=== PATIENT | male | born 1955 | race Caucasian/White ===

== ENCOUNTER 2017-10-08 11:20 | Emergency (ER) | payer OTHER, BC ==
--- NOTE | 2017-10-08 11:54 | EDM.PDOC ---
ED HPI GENERAL MEDICAL PROBLEM - General Chief Complaint: Head Injury Stated Complaint: HEAD INJURY Time Seen by Provider: 10/08/17 11:30 Source of Information: Reports: Patient, RN Notes Reviewed - History of Present Illness INITIAL COMMENTS - FREE TEXT/NARRATIVE: 61 year old male with blunt injury to R forehead, was drilling a hole into a wall, the drill bit caught, swung the drill against his forehead with resultant small lac. Mild localized discomfort. No generalized Bello at this time. No nausea, vomiting, dizziness or other acute sx. Last tet. many yrs ago. Right Face Pain Score (Numeric/FACES): 2 - Related Data Allergies Allergy/AdvReac Type Severity Reaction Status Date / Time No Known Allergies Allergy Verified 10/08/17 11:26 Home Meds: Home Meds Losartan [Cozaar] 50 mg PO DAILY 10/08/17 [History] Past Medical History Cardiovascular History: Reports: Hypertension Social & Family History - Tobacco Use Smoking Status *Q: Never Smoker - Recreational Drug Use Recreational Drug Use: No ED ROS GENERAL - Review of Systems Review Of Systems: See Below Constitutional: Reports: No Symptoms HEENT: Reports: Other (blunt lac injury R forehead) Respiratory: Reports: No Symptoms Cardiovascular: Denies: Chest Pain GI/Abdominal: Denies: Nausea, Vomiting Musculoskeletal: Denies: Neck Pain Neurological: Reports: Headache (mild localized discomfort area of injury) ED EXAM, HEAD INJURY - Physical Exam Exam: See Below General Appearance: Alert, No Apparent Distress Head: Facial Swelling (mild localized swelling area of injury), Other (small starburst lac R forehead, no active bleeding, about 3/4 cm, edges barely separable). No: Facial Tenderness, Raccoon Eyes Eyes: Bilateral Eye: PERRL, Other (no visible injury) Ears: Normal External Exam Nose: Normal Inspection Neck: Non-Tender, Full Range of Motion Respiratory: No Respiratory Distress Extremities: Normal Inspection, Normal Range of Motion Neurologic: No Motor/Sensory Deficits, Alert, Oriented x 3, Other (finger to nose normal) Skin: Normal Color, Warm/Dry Course - Vital Signs Last Recorded V/S: Last Vital Signs Temp 98.3 F 10/08/17 11:26 Pulse 97 10/08/17 11:26 Resp 16 10/08/17 11:26 BP 141/96 H 10/08/17 11:26 Pulse Ox 97 10/08/17 11:26 Departure - Departure Time of Disposition: 11:52 Disposition: Home, Self-Care 01 Condition: Fair Clinical Impression: Forehead contusion Qualifiers: Encounter type: initial encounter Qualified Code(s): S00.83XA - Contusion of other part of head, initial encounter Forehead laceration Qualifiers: Encounter type: initial encounter Qualified Code(s): S01.81XA - Laceration without foreign body of other part of head, initial encounter - Discharge Information Instructions: Laceration Care, Adult, Contusion, [id number] Referrals: PCP,Not In Area [Primary Care Provider] - Forms: ED Department Discharge Additional Instructions: laceration care instr., try keep steristrips on for about 5 to 7 days, ice packs and elevation as needed for swelling, tylenol or ibuprofen if needed for discomfort
== END 2017-10-08 12:13 | disposition home or self-care (01) ==
LOC: JD.ED 11:20
DX: S01.81XA Laceration without foreign body of other part of head, initial encounter (principal); I10 Essential (primary) hypertension; Z79.899 Other long term (current) drug therapy; W31.89XA Contact with other specified machinery, initial encounter; Y93.89 Activity, other specified; Y92.89 Other specified places as the place of occurrence of the external cause; Y99.0 Civilian activity done for income or pay
CPT/HCPCS: 99283